=== PATIENT | male | born 1975 | race Caucasian/White ===

== ENCOUNTER 2016-12-17 08:38 | Outpatient (CLI) | END 2016-12-17 08:39 | LOC: AMBL 08:38 | PROVIDERS: ATTEND Emergency Medicine | DX: R11.2 Nausea with vomiting, unspecified (principal); F15.10 Other stimulant abuse, uncomplicated; F12.10 Cannabis abuse, uncomplicated ==

== ENCOUNTER 2016-12-22 11:48 | Outpatient (CLI) | payer OTHER ==
--- NOTE | 2016-12-22 13:12 | US ---
EXAM: ULTRASOUND CAROTID DUPLEX, BILATERAL HISTORY: Dizziness, weakness, speech difficulty FINDINGS: Quinn-scale ultrasound, color Doppler and spectral analysis was performed. Velocities are in meters per second. By quinn scale and color Doppler imaging, there were areas of thick, soft to heterogeneous plaque dep osition within the carotid bulbs and proximal internal carotid arteries, greater on the left than on the right. RIGHT: External carotid artery peak systolic velocity: 1.0/0.2 Common carotid artery peak systolic velocity/end diastolic velocity: It 0.9/0.3 Internal carotid artery peak systolic velocity: 0.8 ICA/CCA peak systolic velocity ratio: 0.8 ICA end diastolic velocity: 0.3 LEFT: External carotid artery peak systolic velocity: 0.8/0.2 Common carotid artery peak systolic velocity/end diastolic velocity: 0.5/0.2 Internal carotid artery peak systolic velocity: 0.7 ICA/CCA peak systolic velocity ratio: 1.2 ICA end diastolic velocity: 0.3 The right and left vertebral arteries were antegrade. IMPRESSION: 1. By quinn scale and color Doppler imaging, there were areas of thick, soft to heterogeneous plaque deposition within the carotid bulbs and proximal internal carotid arteries, greater on the left jace n on the right. 2. Internal carotid artery peak systolic velocities and ICA/CCA peak systolic velocity ratios indic ate no hemodynamically significant stenosis bilaterally. 3. Both vertebral arteries were antegrade. 4. Given possible discrepancy between the velocities and the degree of plaque visualization, consid er correlation with CTA neck if indicated.
== END 2016-12-22 11:49 | disposition home or self-care (01) ==
LOC: RAD 11:48
PROVIDERS: ATTEND Physician Assistant Medical
DX: R42 Dizziness and giddiness (principal)

== ENCOUNTER 2016-12-25 08:59 | Outpatient (CLI) ==
[2016-12-25 10:06] LABS: ALBUMIN 3.8 g/dL (3.4-5.0); ALBUMIN/GLOBULIN RATIO 1.03; CALCIUM 9.4 mg/dL (8.2-10.2); POTASSIUM 4.4 mmol/L (3.5-5.1); TOTAL PROTEIN 7.5 g/dL (6.4-8.2)
[2016-12-25 10:07] LABS: ANION GAP 13.4; BILIRUBIN,TOTAL 0.32 mg/dL (0.00-1.20); BUN/CREATININE RATIO 8.25; CREATININE 1.09 mg/dL (0.60-1.10)
== END 2016-12-25 09:00 | disposition home or self-care (01) ==
LOC: RAD 08:59
PROVIDERS: ATTEND Physician Assistant Medical
DX: R94.4 Abnormal results of kidney function studies (principal); I65.29 Occlusion and stenosis of unspecified carotid artery
CPT/HCPCS: 36415; 80053

== ENCOUNTER 2016-12-29 08:24 | Outpatient (CLI) ==
--- NOTE | 2016-12-29 09:50 | CT ---
EXAM: CTA of the neck. History: Carotid artery stenosis. Comparison: Carotid Doppler 12/22/2016 Technique: Multiplanar CT images through the soft tissue neck were obtained following administratio n of IV contrast. MIP images and 3-D reconstructions were also provided. Findings: Paraseptal emphysema seen within the visualized upper lung. Biapical lung scarring. Air fluid level within the left maxillary sinus. Mild mucosal thickening of the ethmoid air cells. Ma stoid air cells are generally clear. No acute osseous abnormalities. Several periapical dental luce ncies more significant on the left. Orbits are intact. No discrete thyroid nodules identified. Epiglottis is not thickened. The visualized intracranial contents demonstrate no grossly acute findings. The bilateral common carotid arteries are patent without significant disease. The bilateral interna l carotid arteries are patent without significant disease. The left vertebral artery is normal. Th e right vertebral artery is absent. Impression: 1. The bilateral internal carotid arteries are patent without significant disease. 2. Normal left vertebral artery and absent right vertebral artery. 3. Left maxillary sinusitis. 4. Several periapical dental abscesses. 5. Paraseptal emphysema within the upper lungs.
== END 2016-12-29 08:25 | disposition home or self-care (01) ==
LOC: RAD 08:24
PROVIDERS: ATTEND Physician Assistant Medical
DX: I65.29 Occlusion and stenosis of unspecified carotid artery (principal)

== ENCOUNTER 2017-08-10 13:38 | Outpatient (CLI) ==
--- NOTE | 2017-08-10 14:31 | CT ---
EXAM: CT of the head without contrast History: Left-sided hemiparesis Comparison: Head CT 03/22/2010 Technique: Multiplanar CT images through the head were obtained without the administration of IV cont rast Findings: The visualized paranasal sinuses and mastoid air cells are clear in general. No acute charlene varial abnormalities. There is mild frontal atrophy. No dominant mass or midline shift. No hydrocephalous. No acute intr acranial hemorrhage or abnormal extraaxial fluid collections. Impression: 1. No acute intracranial process. 2. Mild frontal atrophy
--- NOTE | 2017-08-10 14:37 | CT ---
EXAM: CT soft tissue neck without contrast. HISTORY: Left hemipareses. Left-sided cell carcinoma status post resection. COMPARISON: 12/29/2016. TECHNIQUE: Multiple axial images of the neck were obtained without contrast. Images were reformatte d in the sagittal and coronal plane. FINDINGS: Please note evaluation of the soft tissues of the neck is significantly limited by lack of intravenous contrast. Lateral left neck dissection changes noted. No subcutaneous edema or fluid collection identified. N o soft tissue mass seen within the limitations of noncontrast technique. The parotid glands are unre markable. Right submandibular gland appears normal. Left submandibular gland is absent are small. Pharyngeal soft tissues, epiglottis and laryngeal structures are without gross abnormality. Airway i s normal in caliber. Thyroid gland is normal in size. Biapical scarring is present. No osteolytic or osteoblastic lesion identified. Degenerative changes are present in the spine. IMPRESSION: Status post left neck dissection without acute abnormality within the limitations of noncontrast tech nique. Consider correlation with MRI or PET CT as warranted.
== END 2017-08-10 13:39 | disposition home or self-care (01) ==
LOC: RAD 13:38
PROVIDERS: ATTEND Physician Assistant
DX: G81.90 Hemiplegia, unspecified affecting unspecified side (principal)

== ENCOUNTER 2017-09-08 10:11 | Outpatient (CLI) ==
--- NOTE | 2017-09-08 10:38 | DI ---
EXAM: Two views of the chest. History: Cough. Findings: Heart size is normal. No focal consolidation. No appreciable pleural fluid and no pneumo thorax. No acute osseous abnormalities. Impression: No acute cardiopulmonary process
== END 2017-09-08 10:12 | disposition home or self-care (01) ==
LOC: RAD 10:11
PROVIDERS: ATTEND Physician Assistant
DX: R05 Cough (principal)

== ENCOUNTER 2017-11-03 09:58 | Outpatient (CLI) ==
--- NOTE | 2017-11-03 10:36 | DI ---
EXAM: Three views of the left shoulder HISTORY: Left shoulder pain. COMPARISON: Left shoulder x-rays 03/22/2010 FINDINGS: There is no cortical irregularity or displaced fracture of the left shoulder. There is no lytic or blastic lesion. The glenohumeral joint and acromioclavicular joints are normal. The adjace nt soft tissues and osseous structures are unremarkable. IMPRESSION: There is no cortical irregularity or displaced fracture of the left shoulder.
== END 2017-11-03 09:59 | disposition home or self-care (01) ==
LOC: RAD 09:58
PROVIDERS: ATTEND Physician Assistant
DX: M25.512 Pain in left shoulder (principal)